=== PATIENT | female | born 1995 | race Caucasian/White ===

== ENCOUNTER 2017-05-08 12:01 | Observation (INO) | payer SELFPAY ==
[~2017-05-08] VITALS: Ht 154.9 cm; Wt 77.1 kg
[2017-05-08] MEDS ORDERED: PREN-88 PO (12:50)
== END 2017-05-08 14:10 | disposition home or self-care (01) ==
LOC: L&D 12:01 → EDSEX 12:01 → L&D 12:03
PROVIDERS: ADMIT Specialist; ATTEND Specialist
DX: O36.8120 Decreased fetal movements, second trimester, not applicable or unspecified (principal); Z3A.26 26 weeks gestation of pregnancy
CPT/HCPCS: 76815; 76818; 99281; G0378

== ENCOUNTER 2017-12-08 19:42 | Emergency (ER) | payer MEDICAID ==
[~2017-12-08] VITALS: Ht 165.1 cm; Wt 66.0 kg
[~2017-12-08 19:42] MED LIST: PREN-88 PO
[2017-12-08] MEDS ORDERED: ONDANSETRON HCL 4MG/2ML VIAL IV STA (21:29)
[2017-12-08] MEDS ORDERED: KETOROLAC 30MG/ML VIAL IV STA (21:29)
[2017-12-08] MEDS ORDERED: SODIUM CHLORIDE 0.9% 1,000 ML IV ONE (21:29)
[2017-12-08 21:58] LABS: BASOPHILS % 0.7 % (0.0-2.0); EOSINOPHILS % 2.9 % (0.0-5.0); HEMATOCRIT. 40.6 % (36.0-48.0); HEMOGLOBIN. 13.7 g/dL (12.0-16.0); LYMPHOCYTES % 36.1 % (20.0-50.0); MEAN CORPUSCULAR HEMOGLOBIN 27.4 pg (28.0-32.0); MEAN CORPUSCULAR VOLUME 81.4 fL (81.0-99.0); MEAN PLATELET VOLUME 8.3 fl (7.4-10.4); MONOCYTES % 5.8 % (2.0-8.0); NEUTROPHILS % 54.5 % (40.0-76.0); PLATELET 339 x1000/uL (130-400); RED BLOOD CELL COUNT 4.98 mill/uL (4.2-5.4); RED CELL DISTRIBUTION WIDTH 15.1 % (11.6-14.6)
[2017-12-08 22:04] LABS: CHLORIDE 104 mEq/L (98-107)
[2017-12-08 22:07] LABS: ETHANOL BLOOD < 10 mg/dL
[2017-12-08 22:15] LABS: HCG SCREEN NEGATIVE
[2017-12-09] MEDS ORDERED: SODIUM CHLORIDE 0.9% 1,000 ML IV ONE (00:24)
[2017-12-09 02:30] VITALS: BP 115/79
== END 2017-12-09 02:45 | disposition home or self-care (01) ==
LOC: ER 19:42
DX: O90.89 Other complications of the puerperium, not elsewhere classified (principal); G89.18 Other acute postprocedural pain; R10.30 Lower abdominal pain, unspecified
CPT/HCPCS: 36415; 74176; 80053; 83605; 83690; 84703; 85025; 85610; 96361; 96374; 96375; 99285; G0482; J1885; J2405; J7030; Z7610